=== PATIENT | male | born 1960 | race Caucasian/White ===

== ENCOUNTER → 2021-04-08 14:00 | Outpatient (CLI) | payer BC, SELFPAY ==
[2021-04-08 14:13] LABS: Basophils # 0.1 K/mm3 (0-0.2); Eosinophils # 0.1 K/mm3 (0.0-0.4); Eosinophils % 1.2 % (0.1-12.0); Hematocrit 51.3 % (42.0-52.0); Hemoglobin 17.2 g/dL (14.1-18.0); Lymphocytes # 2.2 K/mm3 (0.7-4.5); Lymphocytes % 24.4 % (10-50); Mean Corpuscular HGB Conc 33.4 g/dL (31.8-35.4); Mean Corpuscular Hemoglobin 31.8 pg (27.0-31.2); Mean Corpuscular Volume 94.9 fl (80-94); Mean Platelet Volume 8.6 fl (7.4-10.4); Monocytes # 0.7 K/mm3 (0.1-1.0); Neutrophils # 5.8 K/mm3 (1.8-7.8); Neutrophils % 65.4 % (37.0-80.0); Platelet Count 300 K/mm3 (142-424); Red Cell Distribution Width 13.3 % (11.5-17.5); White Blood Count 8.9 K/mm3 (4.8-10.8)
[2021-04-08 14:16] LABS: Alanine Aminotransferase 25 U/L (12-78); Albumin Level 4.8 g/dl (3.5-5.0); Albumin/Globulin Ratio 1.4 (1.1-1.8); Alkaline Phosphatase 95 U/L (38-126); Anion Gap 13.7 mEq/L (5-15); Aspartate Amino Transferase 34 U/L (17-59); Bilirubin,Total 0.6 mg/dl (0.2-1.3); Blood Urea Nitrogen 12 mg/dl (9-20); Calcium 9.7 mg/dl (8.4-10.2); Carbon Dioxide 24 mmol/L (22.0-30.0); Chloride 107 mmol/L (98-107); Cholesterol 191 mg/dl (140-200); Estimated Glomerular Filt Rate 115 ml/min (>60); GFR (African American) 139 ML/MIN (>60); Globulin 3.4 g/dL (1.3-3.2); Glucose 88 mg/dl (74-100); HDL Cholesterol 63 mg/dl (40-60); Potassium 4.7 mmoL/L (3.5-5.1); Sodium 140 mmol/L (136-145); Total Protein,Serum 8.2 g/dl (6.3-8.2); Triglycerides 64 mg/dl (30-150); VLDL Cholesterol 13 mg/dL (0-40)
[2021-04-08 14:28] LABS: Direct LDL Cholesterol 112.34 mg/dL (100-129)
[2021-04-08 14:34] LABS: 25-OH Vitamin D, Total 38.5 ng/mL (30-100); T4 (Thyroxine) 7.6 ug/dl (5.53-11.0)
[2021-04-08 14:47] LABS: Prostate Specific Ag Screen 1.3 ng/ml (0.0-4.0); Thyroid Stimulating Hormone 0.23 uIU/mL (0.465-4.68)
[2021-04-08 14:53] LABS: Benzodiazepines Screen,Urine Negative ng/ml (<200); Cannabinoid Screen,Urine Positive ng/ml (<50)
[2021-04-08 14:55] LABS: Methadone Screen,Urine Negative ng/ml (<300); Opiate Screen,Urine Positive ng/ml (<300)
[2021-04-08 16:44] LABS: Barbiturates Screen,Urine Negative ng/ml (<200)
[2021-04-08 16:48] LABS: Phencyclidine Screen,Urine Negative ng/ml (<25)
[2021-04-08 18:29] LABS: Amphetamine/Metha Screen,Urine Negative ng/ml (<1000); Cocaine Screen,Urine Negative ng/ml (<300)
== END ==
PROVIDERS: Visit Provider Emergency Medicine
DX: M50.30 Other cervical disc degeneration, unspecified cervical region (principal); M51.36 Other intervertebral disc degeneration, lumbar region; M54.9 Dorsalgia, unspecified; M79.2 Neuralgia and neuritis, unspecified; R53.83 Other fatigue; Z12.5 Encounter for screening for malignant neoplasm of prostate; Z72.0 Tobacco use; Z79.899 Other long term (current) drug therapy
CPT/HCPCS: 80053; 80061; 80305; 82306; 84436; 84443; 85025; G0103

== ENCOUNTER → 2021-06-24 18:27 | Outpatient (CLI) | payer BC, SELFPAY ==
[2021-06-24 19:42] LABS: Barbiturates Screen,Urine Negative ng/ml (<200)
[2021-06-24 19:43] LABS: Amphetamine/Metha Screen,Urine Negative ng/ml (<1000); Benzodiazepines Screen,Urine Negative ng/ml (<200)
[2021-06-24 19:44] LABS: Cannabinoid Screen,Urine Positive ng/ml (<50); Cocaine Screen,Urine Negative ng/ml (<300)
[2021-06-24 19:45] LABS: Methadone Screen,Urine Negative ng/ml (<300)
[2021-06-24 19:46] LABS: Opiate Screen,Urine Positive ng/ml (<300); Phencyclidine Screen,Urine Negative ng/ml (<25)
== END ==
PROVIDERS: Visit Provider Emergency Medicine
DX: Z79.899 Other long term (current) drug therapy (principal)
CPT/HCPCS: 80305

== ENCOUNTER → 2021-07-01 08:10 | Outpatient (CLI) | payer BC, SELFPAY ==
--- NOTE | 2021-07-01 08:10 | CT_ITS ---
PROCEDURE: CT LUNG SCREENING CLINICAL INDICATION: lung cancer screening COMPARISON: No exams were available for comparison TECHNIQUE: The exam was performed on a GE Light Speed [address] scanner using 2.90 mGy CTDI. A low dose helical CT CHEST was performed on a multi-detector scanner. All CT scans at the facility use one or more dose reduction, viz: automated exposure control, ma/kV adjustment per patient size (including targeted exams where dose is matched to indication, i.e. head), or iterative reconstruction technique. The LDCT was performed in a facility that meets the criteria for the screening program. Data regarding this exam was submitted to ACR which is an approved registry. The order for this exam indicates that it came as a result of a lung cancer screening counseling shard decision-making visit that included all the elements required of such a visit including smoking cessation. The radiologist interpreting this exam meets the CMS criteria for the LDCT lung cancer screening program. The exam is reported using the Lung-RADS classification scale and reported to the ACR registry. NOTE: This study was performed for the specific purposes of lung cancer screening and is not an alternative to diagnostic chest CT. RADIATION DOSE: CTDI vol(CT dose Index-volume) = 2.90mG DLP (Dose Length Product) = 112.03 mGcm FINDINGS: COPD changes with paraseptal and centrilobular emphysema with scattered areas of scarring. 3 mm noncalcified nodule right middle lobe 4/61. Mild diffuse bronchial thickening. 5 x 6 mm noncalcified subpleural nodule right lower lobe 4/42. Developing pulmonary fibrotic changes in the right lower lobe superior segment posteriorly OTHER FINDINGS: Coronary artery calcifications. Aortic valve calcifications. IMPRESSION: Lung-RADS Category 3 Probably Benign regarding 6 mm nodule in the right lower lobe. Follow-up: [address] Chest with contrast. Dictated by: Moose Renteria MD 07/07/2021 09:41 Moose Renteria MD in [place] 07/07/2021 09:41
== END ==
PROVIDERS: PCP Emergency Medicine; Visit Provider Emergency Medicine
DX: Z87.891 Personal history of nicotine dependence (principal); Z12.2 Encounter for screening for malignant neoplasm of respiratory organs
CPT/HCPCS: 71271

== ENCOUNTER → 2021-08-05 12:49 | Outpatient (CLI) | payer BC, SELFPAY ==
[2021-08-05 14:21] LABS: Amphetamine/Metha Screen,Urine Negative ng/ml (<1000); Barbiturates Screen,Urine Negative ng/ml (<200)
[2021-08-05 14:23] LABS: Benzodiazepines Screen,Urine Negative ng/ml (<200)
[2021-08-05 14:24] LABS: Cannabinoid Screen,Urine Positive ng/ml (<50)
[2021-08-05 14:25] LABS: Cocaine Screen,Urine Negative ng/ml (<300); Methadone Screen,Urine Negative ng/ml (<300)
[2021-08-05 14:26] LABS: Opiate Screen,Urine Positive ng/ml (<300)
[2021-08-05 14:27] LABS: Phencyclidine Screen,Urine Negative ng/ml (<25)
== END ==
PROVIDERS: Visit Provider Emergency Medicine
DX: Z79.899 Other long term (current) drug therapy (principal)
CPT/HCPCS: 80305

== ENCOUNTER → 2021-10-01 13:54 | Outpatient (CLI) | payer BC, SELFPAY ==
[2021-10-01 15:30] LABS: Amphetamine/Metha Screen,Urine Negative ng/ml (<1000)
[2021-10-01 15:31] LABS: Barbiturates Screen,Urine Negative ng/ml (<200)
[2021-10-01 15:33] LABS: Benzodiazepines Screen,Urine Negative ng/ml (<200); Cannabinoid Screen,Urine Negative ng/ml (<50)
[2021-10-01 15:34] LABS: Cocaine Screen,Urine Negative ng/ml (<300)
[2021-10-01 15:35] LABS: Methadone Screen,Urine Negative ng/ml (<300); Opiate Screen,Urine Positive ng/ml (<300)
[2021-10-01 15:36] LABS: Phencyclidine Screen,Urine Negative ng/ml (<25)
== END ==
PROVIDERS: Visit Provider Emergency Medicine
DX: M54.9 Dorsalgia, unspecified (principal)
CPT/HCPCS: 80305

== ENCOUNTER → 2022-01-14 14:00 | Outpatient (CLI) | payer BC, SELFPAY ==
[2022-01-14 14:24] LABS: Anion Gap 12.9 mEq/L (5-15); Blood Urea Nitrogen 15 mg/dl (9-20); Carbon Dioxide 26 mmol/L (22.0-30.0); Chloride 106 mmol/L (98-107); Estimated Glomerular Filt Rate 115 ml/min (>60); GFR (African American) 139 ML/MIN (>60); Glucose 107 mg/dl (74-100); Potassium 3.9 mmoL/L (3.5-5.1); Sodium 141 mmol/L (136-145)
== END ==
PROVIDERS: Visit Provider Emergency Medicine
DX: Z01.818 Encounter for other preprocedural examination (principal)
CPT/HCPCS: 36415; 80048

== ENCOUNTER → 2022-01-16 08:31 | Outpatient (CLI) | payer BC, SELFPAY ==
--- NOTE | 2022-01-16 09:37 | CT_ITS ---
FINAL REPORT CLINICAL HISTORY: abnormal CT follow up, lung nodule COMPARISON: July 01, 2021 FINDINGS: Axial CT images of the chest were obtained with contrast. Coronal reformatted images were also obtained. This study was performed with techniques to keep radiation doses as low as reasonably achievable, (ALARA). Individualized dose reduction techniques using automated exposure control or adjustment of mA and/or KV according to the patient's size were employed. There is no evidence of mediastinal or hilar mass or adenopathy. No axillary mass or adenopathy is identified. On lung window images, there are moderate changes of emphysema. There is mild scarring. There is mild bibasilar atelectasis which partially obscures a 6 mm nodule in the right lower lobe on image 41 which appears stable. A 2 mm lateral right middle lobe nodule is not as well visualized but stable. No new mass or nodule is identified. Limited images of the upper abdomen reveal no mass or localized inflammatory process. IMPRESSION: Stable right lung nodules. No new mass or nodule identified. Reviewed, Interpreted and Dictated by Parveen Whitlock III, MD Transcribed by Kacy Gee Authenticated by Parveen Whitlock III, MD on 01/16/2022 11:05:52 AM [facility]
== END ==
PROVIDERS: PCP Emergency Medicine; Visit Provider Emergency Medicine
DX: I35.9 Nonrheumatic aortic valve disorder, unspecified (principal); R01.1 Cardiac murmur, unspecified; R91.1 Solitary pulmonary nodule; R93.89 Abnormal findings on diagnostic imaging of other specified body structures
CPT/HCPCS: 71260; 93306; Q9967

== ENCOUNTER → 2022-02-12 07:18 | Outpatient (CLI) | payer BC, SELFPAY ==
--- NOTE | 2022-02-12 | CA_ITS ---
APPROVED REPORT Exam: Exercise Treadmill Technologist: Lili Espana, Ht: 5 ft 10 in Wt: 185 lbs BSA: 2.02 m2 HR: 62 bpm BP: 124/80 mmHg Rhythm: NSR Medical History Medications: Gabapentin,,,,, Tramadol,,,,, BREo,,,,, Hydrocodone Acetaminophen,,,,, Stress Test Details Test: Yuri HR Resting HR: 66 bpm Max Heart Rate (APMHR): 159.056460 bpm Max HR Achieved: 128 bpm Target HR (85% APMHR): 135.921110 bpm % of APMHR: 80.50 Recovery HR: 110 bpm BP Resting BP: 122/85 mmHg Max BP: 164/85 mmHg Recovery BP: 160.0/76.0 mmHg ECG Clinical Exercise duration: 07:25 min Highest Stage Achieved: Exercise capacity: 10.1 METs Stress ECG Conclusion Pt exercised total of 7:25 into stage 3 of yuri protocol. No CP noted. Rare fusion beat. Allowing for motion artifact the ST response to exercise is within normal. Normal GXT to HR achieved. (81% if PM). Myoview images reported separately. Test Summary . Standing . . . . . . Cardiolite injected . . Stop exercise at 07:25 . . . . . . Electronically signed by : Domingo Magaña MD 02/13/2022 14:36:10
--- NOTE | 2022-02-12 07:18 | NM_ITS ---
APPROVED REPORT Exam: Nuclear Stress Test Indication: FORMER TOB USE, FM HX., SOB, COPD, AORTIC STENOSIS, LESTER CORATID BRUITS Patient Location: Outpatient Stress Tech: Lili Espana [place] Tech:Danyell Esparza ARRBatool RT (R)(N)(M) Ht: 5 ft 9 in Wt: 180 lbs HR: 62 bpm BP: 174/80 mmHg BSA: 1.98 m2 BMI: 26.5 History: FORMER TOB USE, FM HX., SOB, COPD, AORTIC STENOSIS, LESTER CORATID BRUITS Procedure: Patient exercised on Mynor protocol 7:25 minutes and sec, resting heart rate 62 bpm, resting blood pressure 134/80 mmHg, with exercise maximum heart rate achived was 128 bpm which is 81 % of the maximum predicted heart rate and blood pressure was 164/85 mmHg. Test was stopped due to FATIGUE. Patient denied any complaint of chest pain. Patient has good exercise capacity, achieved 10.1 METs of workload on treadmill, the blood pressure response to exercise was Adequate. Electrocardiogram Resting electrocardiogram shows sinus rhythm, with the exercise there is less than 1.[address] segment depression noted from the baseline EKG. The EKG portion of the exercise Myoview is nondiagnostic as patient did not achieve the target heart rate. Cardiac Stress and Resting SPECT Images: Cardiac Stress and Resting SPECT images were obtained using technetium 99m Myoview 32.0 mCi stress and 10.46 mCi at rest. Gated SPECT for analysis of segmental wall motion and calculation of the ejection fraction also done. Prone images were also obtained. Cardiac stress and resting SPECT images show uniform myocardial activity without segmental perfusion abnormality, computer derived ejection fraction is 58% with no regional wall motion abnormality, right ventricle is normal size and contractility. Conclusion: 1. The EKG portion of the exercise sestamibi is nondiagnostic as patient did not achieve the target heart rate, patient has good exercise capacity achieved 10.1 METs of workload on treadmill, the blood pressure response to exercise was adequate, there was no exercise-induced chest discomfort. 2. No scintigraphic evidence of reversible ischemia seen, computer derived ejection fraction is 58% with no regional wall motion abnormality, right ventricle is normal size and contractility 3. Normal exercise sestamibi at submaximal heart rate of 81% of the maximum predicted. Electronically signed by : Domingo Magaña MD 02/13/2022 16:03:15
--- NOTE | 2022-02-12 07:19 | CA_ITS ---
FINAL REPORT TECHNIQUE: Color Doppler, duplex Doppler and peña scale sonography of the bilateral neck arterial vasculature was performed. Velocities were measured in the carotid arteries. Stenosis evaluation based on the validated velocity criteria. CLINICAL HISTORY: bilateral carotid bruits FINDINGS: The peak systolic velocity of the right common carotid artery is 72 cm/s. The peak systolic velocity of the right internal carotid artery is 71 cm/s and end diastolic velocity 28 cm/s. The ICA/CCA ratio is .99. A small amount of plaque is present. The right external carotid artery is patent. The right vertebral artery is patent with antegrade flow. The peak systolic velocity of the left common carotid artery is 73 cm/s. The peak systolic velocity of the left internal carotid artery is 68 cm/s and end diastolic velocity 27 cm/s. The ICA/CCA ratio is 1.02. A small amount of plaque is present. The left external carotid artery is patent.The left vertebral artery is patent with antegrade flow. IMPRESSION: Less than 50% bilateral carotid stenoses. Bilateral patent vertebral arteries with antegrade flow. If indicated, CTA or MRA could further evaluate. Reviewed, Interpreted and Dictated by Parveen Whitlock III, MD Transcribed by Annel Rodriguez Authenticated by Parveen Whitlock III, MD on 02/12/2022 10:41:47 AM [facility]
== END ==
PROVIDERS: PCP Emergency Medicine; Visit Provider Internal Medicine Cardiovascular Disease
DX: R06.00 Dyspnea, unspecified (principal); R09.89 Other specified symptoms and signs involving the circulatory and respiratory systems; I35.0 Nonrheumatic aortic (valve) stenosis; J44.9 Chronic obstructive pulmonary disease, unspecified; Z72.0 Tobacco use; Z78.9 Other specified health status
CPT/HCPCS: 78452; 93017; 93880; A9502; G0399

== ENCOUNTER → 2022-03-27 16:42 | Outpatient (CLI) | payer BC, SELFPAY ==
[2022-03-27 13:34] LABS: Barbiturates Screen,Urine Negative ng/ml (<200); Benzodiazepines Screen,Urine Negative ng/ml (<200)
[2022-03-27 13:35] LABS: Amphetamine/Metha Screen,Urine Negative ng/ml (<1000)
[2022-03-27 13:36] LABS: Cannabinoid Screen,Urine Positive ng/ml (<50); Cocaine Screen,Urine Negative ng/ml (<300)
[2022-03-27 13:37] LABS: Methadone Screen,Urine Negative ng/ml (<300)
[2022-03-27 13:38] LABS: Opiate Screen,Urine Negative ng/ml (<300); Phencyclidine Screen,Urine Negative ng/ml (<25)
== END ==
PROVIDERS: Visit Provider Emergency Medicine
DX: M50.30 Other cervical disc degeneration, unspecified cervical region (principal)
CPT/HCPCS: 80305

== ENCOUNTER → 2022-05-25 15:20 | Outpatient (CLI) | payer BC, SELFPAY ==
[2022-05-25 15:07] LABS: Amphetamine/Metha Screen,Urine Negative ng/ml (<1000)
[2022-05-25 15:08] LABS: Barbiturates Screen,Urine Negative ng/ml (<200); Benzodiazepines Screen,Urine Negative ng/ml (<200)
[2022-05-25 15:09] LABS: Cannabinoid Screen,Urine Positive ng/ml (<50)
[2022-05-25 15:10] LABS: Cocaine Screen,Urine Negative ng/ml (<300); Methadone Screen,Urine Negative ng/ml (<300)
[2022-05-25 15:11] LABS: Opiate Screen,Urine Positive ng/ml (<300)
[2022-05-25 15:12] LABS: Phencyclidine Screen,Urine Negative ng/ml (<25)
== END ==
PROVIDERS: Visit Provider Emergency Medicine
DX: M50.30 Other cervical disc degeneration, unspecified cervical region (principal); Z79.899 Other long term (current) drug therapy
CPT/HCPCS: 80305

== ENCOUNTER → 2022-07-24 11:20 | Outpatient (CLI) | payer BC, SELFPAY ==
[2022-07-24 19:46] LABS: Amphetamine/Metha Screen,Urine Negative ng/ml (<1000)
[2022-07-24 19:47] LABS: Barbiturates Screen,Urine Negative ng/ml (<200); Benzodiazepines Screen,Urine Negative ng/ml (<200)
[2022-07-24 19:48] LABS: Cannabinoid Screen,Urine Positive ng/ml (<50)
[2022-07-24 19:49] LABS: Cocaine Screen,Urine Negative ng/ml (<300); Methadone Screen,Urine Negative ng/ml (<300)
[2022-07-24 19:51] LABS: Opiate Screen,Urine Positive ng/ml (<300); Phencyclidine Screen,Urine Negative ng/ml (<25)
== END ==
PROVIDERS: PCP Emergency Medicine; Visit Provider Emergency Medicine
DX: Z79.899 Other long term (current) drug therapy (principal)
CPT/HCPCS: 80305

== ENCOUNTER → 2023-04-09 10:02 | Outpatient (CLI) | payer BC, SELFPAY | LOC: RT 10:02 | PROVIDERS: PCP Emergency Medicine; Visit Provider Emergency Medicine | DX: I35.0 Nonrheumatic aortic (valve) stenosis (principal) | CPT/HCPCS: 93306 ==

== ENCOUNTER → 2023-05-14 09:05 | Outpatient (CLI) | payer BC, SELFPAY ==
[2023-05-14 19:37] LABS: Amphetamine/Metha Screen,Urine Negative ng/ml (<1000)
[2023-05-14 19:38] LABS: Barbiturates Screen,Urine Negative ng/ml (<200); Benzodiazepines Screen,Urine Negative ng/ml (<200)
[2023-05-14 19:41] LABS: Methadone Screen,Urine Negative ng/ml (<300); Opiate Screen,Urine Positive ng/ml (<300)
[2023-05-14 19:42] LABS: Phencyclidine Screen,Urine Negative ng/ml (<25)
[2023-05-14 20:08] LABS: Cannabinoid Screen,Urine Positive ng/ml (<50)
[2023-05-14 20:09] LABS: Cocaine Screen,Urine Negative ng/ml (<300)
== END ==
PROVIDERS: PCP Emergency Medicine; Visit Provider Emergency Medicine
DX: M54.2 Cervicalgia (principal)
CPT/HCPCS: 80305

== ENCOUNTER → 2023-07-13 16:04 | Outpatient (CLI) | payer BC, SELFPAY ==
[2023-07-13 12:34] LABS: Basophils # 0.1 K/mm3 (0-0.2); Basophils % 0.8 % (0.1-2.0); Eosinophils # 0.2 K/mm3 (0.0-0.4); Eosinophils % 2.8 % (0.1-12.0); Hematocrit 46.8 % (42.0-52.0); Hemoglobin 15.4 g/dL (14.1-18.0); Lymphocytes % 35.1 % (10-50); Mean Corpuscular HGB Conc 32.8 g/dL (31.8-35.4); Mean Corpuscular Hemoglobin 30.9 pg (27.0-31.2); Mean Corpuscular Volume 94.1 fl (80-94); Mean Platelet Volume 9.2 fl (7.4-10.4); Monocytes # 0.6 K/mm3 (0.1-1.0); Monocytes % 10.5 % (1.7-9.3); Neutrophils # 2.8 K/mm3 (1.8-7.8); Neutrophils % 50.8 % (37.0-80.0); Platelet Count 244 K/mm3 (142-424); Red Blood Count 4.97 M/mm3 (4.60-6.20); Red Cell Distribution Width 13.1 % (11.5-17.5); White Blood Count 5.6 K/mm3 (4.8-10.8)
[2023-07-13 12:50] LABS: Chloride 105 mmol/L (98-107); Sodium 141 mmol/L (136-145)
[2023-07-13 12:52] LABS: Alanine Aminotransferase 33 U/L (12-78); Blood Urea Nitrogen 12 mg/dl (9-20); Estimated Glomerular Filt Rate 114 ml/min (>60); GFR (African American) 138 ML/MIN (>60)
[2023-07-13 12:53] LABS: Albumin Level 4.6 g/dl (3.5-5.0); Albumin/Globulin Ratio 1.4 (1.1-1.8); Alkaline Phosphatase 75 U/L (38-126); Aspartate Amino Transferase 28 U/L (17-59); Bilirubin,Total 0.7 mg/dl (0.2-1.3); Calcium 9.8 mg/dl (8.4-10.2); Carbon Dioxide 23 mmol/L (22.0-30.0); Chol/HDL Ratio 2.6 (1-3.5); Cholesterol 162 mg/dl (140-200); Globulin 3.3 g/dL (1.3-3.2); Glucose 112 mg/dl (74-100); HDL Cholesterol 62 mg/dl (40-60); Total Protein,Serum 7.9 g/dl (6.3-8.2); Triglycerides 83 mg/dl (30-150); VLDL Cholesterol 17 mg/dL (0-40)
[2023-07-13 13:09] LABS: 25-OH Vitamin D, Total 36.8 ng/mL (30-100)
[2023-07-13 13:10] LABS: Amphetamine/Metha Screen,Urine Negative ng/ml (<1000); Benzodiazepines Screen,Urine Negative ng/ml (<200)
[2023-07-13 13:11] LABS: Barbiturates Screen,Urine Negative ng/ml (<200); Methadone Screen,Urine Negative ng/ml (<300)
[2023-07-13 13:12] LABS: Cannabinoid Screen,Urine Positive ng/ml (<50)
[2023-07-13 13:13] LABS: Cocaine Screen,Urine Negative ng/ml (<300); Opiate Screen,Urine Positive ng/ml (<300)
[2023-07-13 13:14] LABS: Phencyclidine Screen,Urine Negative ng/ml (<25)
[2023-07-13 13:20] LABS: Direct LDL Cholesterol 73.04 mg/dL (100-129)
[2023-07-13 13:25] LABS: Thyroid Stimulating Hormone 0.64 uIU/mL (0.465-4.68)
[2023-07-13 13:48] LABS: Prostate Specific Ag Screen 1.1 ng/ml (0.0-4.0)
== END ==
PROVIDERS: PCP Emergency Medicine; Visit Provider Emergency Medicine
DX: E78.5 Hyperlipidemia, unspecified (principal); M79.2 Neuralgia and neuritis, unspecified; Z79.899 Other long term (current) drug therapy; Z12.5 Encounter for screening for malignant neoplasm of prostate
CPT/HCPCS: 80053; 80061; 80305; 82306; 84436; 84443; 85025; G0103

== ENCOUNTER → 2023-09-08 13:27 | Outpatient (CLI) | payer MEDICARE, BC, SELFPAY ==
[2023-09-08 17:40] LABS: Amphetamine/Metha Screen,Urine Negative ng/ml (<1000)
[2023-09-08 17:41] LABS: Barbiturates Screen,Urine Negative ng/ml (<200); Benzodiazepines Screen,Urine Negative ng/ml (<200)
[2023-09-08 17:42] LABS: Cannabinoid Screen,Urine Positive ng/ml (<50); Cocaine Screen,Urine Negative ng/ml (<300)
[2023-09-08 17:43] LABS: Methadone Screen,Urine Negative ng/ml (<300)
[2023-09-08 17:44] LABS: Opiate Screen,Urine Positive ng/ml (<300); Phencyclidine Screen,Urine Negative ng/ml (<25)
== END ==
PROVIDERS: PCP Emergency Medicine; Visit Provider Emergency Medicine
DX: Z79.899 Other long term (current) drug therapy (principal)
CPT/HCPCS: 80307

== ENCOUNTER 2023-12-06 11:38 | Outpatient (CLI) | payer MEDICARE, BC, SELFPAY ==
[2023-12-06 12:00] LABS: Amphetamine/Metha Screen,Urine Negative ng/ml (<1000); Barbiturates Screen,Urine Negative ng/ml (<200)
[2023-12-06 12:01] LABS: Benzodiazepines Screen,Urine Negative ng/ml (<200)
[2023-12-06 12:02] LABS: Cannabinoid Screen,Urine Positive ng/ml (<50); Cocaine Screen,Urine Negative ng/ml (<300)
[2023-12-06 12:03] LABS: Methadone Screen,Urine Negative ng/ml (<300)
[2023-12-06 12:04] LABS: Opiate Screen,Urine Positive ng/ml (<300); Phencyclidine Screen,Urine Negative ng/ml (<25)
== END 2023-12-06 23:59 ==
PROVIDERS: PCP Internal Medicine; Visit Provider Internal Medicine
DX: Z79.899 Other long term (current) drug therapy (principal)
CPT/HCPCS: 80307

== ENCOUNTER 2025-02-01 10:00 | Outpatient (CLI) | payer MEDICARE, BC, SELFPAY ==
[2025-02-01 20:27] LABS: Alanine Aminotransferase 28 U/L (12-78); Albumin Level 4.6 g/dl (3.5-5.0); Albumin/Globulin Ratio 1.5 (1.1-1.8); Alkaline Phosphatase 72 U/L (38-126); Anion Gap 14.6 mEq/L (5-15); Aspartate Amino Transferase 25 U/L (17-59); Bilirubin,Total 0.7 mg/dl (0.2-1.3); Blood Urea Nitrogen 13 mg/dl (9-20); Calcium 9.5 mg/dl (8.4-10.2); Carbon Dioxide 24 mmol/L (22.0-30.0); Chloride 104 mmol/L (98-107); Chol/HDL Ratio 3.7 (1-3.5); Cholesterol 172 mg/dl (140-200); Estimated Glomerular Filt Rate 114 ml/min (>60); GFR (African American) 137 ML/MIN (>60); Glucose 92 mg/dl (74-100); HDL Cholesterol 47 mg/dl (40-60); Potassium 4.6 mmoL/L (3.5-5.1); Sodium 138 mmol/L (136-145); Total Protein,Serum 7.6 g/dl (6.3-8.2); Triglycerides 57 mg/dl (30-150); VLDL Cholesterol 11 mg/dL (0-40)
[2025-02-01 20:37] LABS: Direct LDL Cholesterol 99.43 mg/dL (100-129)
[2025-02-01 20:57] LABS: Prostate Specific Ag Screen 1.3 ng/ml (0.0-4.0)
== END 2025-02-01 23:59 | disposition home or self-care (01) ==
LOC: LAB.DROPOF 02-02 11:10
PROVIDERS: PCP Family Medicine; Visit Provider Family Medicine
DX: E78.2 Mixed hyperlipidemia (principal); E66.3 Overweight; E78.5 Hyperlipidemia, unspecified; Z12.5 Encounter for screening for malignant neoplasm of prostate
CPT/HCPCS: 80053; 80061; G0103